=== PATIENT | female | born 2000 | race Caucasian/White ===

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

== ENCOUNTER 2019-02-15 08:51 | Emergency (ER) | payer SELFPAY, OTHER ==
[2019-02-15 09:56] LABS: ADD MAN DIFF? NO
[2019-02-15 09:58] LABS: BASOPHIL # 0.1 10^3/ul (0.0-0.1); BASOPHILS % 0.9 % (0.0-2.0); EOSINOPHILS # 0.1 10^3/ul (0.0-0.5); EOSINOPHILS % 0.7 % (0.0-7.0); HEMATOCRIT 41.5 % (37.0-47.0); HEMOGLOBIN 13.5 g/dl (12.0-16.0); LYMPHOCYTES # 2.6 10^3/ul (0.8-2.9); LYMPHOCYTES % 18.5 % (18.0-55.0); MEAN CORPUSCULAR HEMOGLOBIN 26.8 pg (29.0-33.0); MEAN CORPUSCULAR HGB CONC 32.5 g/dl (32.0-37.0); MEAN CORPUSCULAR VOLUME 82.3 fl (72.0-104.0); MEAN PLATELET VOLUME 9.1 fl (7.4-10.4); MONOCYTE # 1.1 10^3/ul (0.3-0.9); MONOCYTES % 7.5 % (0.0-13.0); NEUTROPHIL # 10.1 10^3/ul (1.6-7.5); NEUTROPHILS % 72.1 % (30.0-74.0); PLATELET COUNT 360 10^3/UL (140-415); RED BLOOD COUNT 5.04 10^6/ul (4.20-5.40); RED CELL DISTRIBUTION WIDTH 13.7 % (11.5-14.5)
[2019-02-15] MEDS ORDERED: AMPICILLIN/SULB 3 GM/NS (PMX) 100 ML IVPB (10:00)
[2019-02-15] MEDS: morphine 4 MG/ML VIAL IV (10:01)
[2019-02-15] MEDS: SOD CHLORIDE 0.9% 1,000 ML IV (10:01)
[2019-02-15] MEDS: ONDANSETRON 4 MG INJ IV (10:01)
[2019-02-15 10:20] LABS: ALANINE AMINOTRANSFERASE 13 IU/L (13-69); ALBUMIN 4.3 g/dl (3.3-4.9); ALBUMIN/GLOBULIN RATIO 1.13; ALKALINE PHOSPHATASE 87 IU/L (42-121); ANION GAP 13 (5-13); ASPARTATE AMINO TRANSFERASE 22 IU/L (15-46); BILIRUBIN,INDIRECT 0.7 mg/dl (0-1.1); BILIRUBIN,TOTAL 0.7 mg/dl (0.2-1.3); BLOOD UREA NITROGEN 12 mg/dl (7-20); CALCIUM 9.2 mg/dl (8.4-10.2); CARBON DIOXIDE 24 mmol/L (21-31); CHLORIDE 105 mmol/L (97-110); Estimated GFR > 60 mL/min (>60); GLUCOSE 95 mg/dl (70-220); POTASSIUM 4.2 mmol/L (3.5-5.1); SODIUM 142 mmol/L (135-144); TOTAL PROTEIN 8.1 g/dl (6.1-8.1)
[2019-02-15] MEDS: AMPICILLIN/SULB 3 GM/NS (PMX) 100 ML IVPB (10:27)
[2019-02-15] MEDS: IOHEXOL 300MG/ML 150 ML BTL (10:40)
[2019-02-15] MEDS: SOD CHLORIDE 0.9% 100 ML (10:40)
== END 2019-02-15 12:15 | disposition home or self-care (01) ==
LOC: FTE 08:51
DX: K04.7 Periapical abscess without sinus (principal); L03.211 Cellulitis of face
CPT/HCPCS: 36415; 70486; 80053; 81025; 85025; 96365; 96375; 99285-25